=== PATIENT | male | born 1975 | race Caucasian/White ===

== ENCOUNTER 2016-03-27 13:11 | Emergency (ER) | payer BC ==
--- NOTE | 2016-03-27 15:28 | EDDOCDS ---
Nurse's Notes [facility] Name: Josh Vazquez Age: 40 yrs Sex: Male : 1975 Arrival Date: 03/27/2016 Time: 13:11 Bed Triage 2 Private MD: Ricardo Wong Diagnosis: Carpal tunnel syndrome, left upper limb;Anxiety disorder, unspecified Presentation: 03/27 13:16 Presenting complaint: Patient states: several weeks of left finger numbness and dy tingling that has gotten progressively worse. complaining of burn sensation to bilateral shoulder blade area that started today. started Effexor 2 weeks ago and concerned that it could be related. also recently had sister diagnosed with MS which causing him concern. Adult Sepsis Screening: The patient does not have new or worsening altered mentation. Patient's respiratory rate is less than 22. Systolic blood pressure is greater than 100. Patient has a qSOFA score of 0- Negative Sepsis Screen. Suicide/Homicide risk assessment- the patient denies having any suicidal and/or homicidal ideations and does not present with any other emotional, behavioral or mental health complaints. Status: Patient is not a gas line servicer or dependent. Transition of care: patient was not received from another setting of care. 13:16 Acuity: MAK Level 3 dy 13:16 Method Of Arrival: Walkin/Carried/Asstd dy Triage Assessment: 13:19 General: Appears in no apparent distress. Pain: Location: left scapular area and right dy scapular area Pain currently is 4 out of 10 on a pain scale. Quality of pain is described as burning. 15:27 Pt Declines HIV testing. dy Historical: - Allergies: No known drug Allergies; - Home Meds: 1. Effexor XR 75 mg Oral cp24 1 cap nightly (Last dose: 03/26/2016) 2. hydroxyzine HCl 25 mg Oral tab 1 tab 1-2 tabs at night for sleep (Last dose: 03/27/2016) - PMHx: Allergies, Seasonal; Anxiety; - PSHx: none; - Social history: Smoking status: Patient states was never smoker of tobacco. No barriers to communication noted, The patient speaks fluent Upper Sorbian, Speaks appropriately for age. - Family history: Not pertinent. - : The pt / caregiver states he / she is not on anticoagulants. Home medication list is obtained from the patient. - Exposure Risk Screening:: None identified. Screenin:26 Screening information is obtained from the patient. Fall risk: No risks identified. dy Assistance ADL's: requires no assistance with activities of daily living. Abuse/DV Screen: The patient / caregiver reports he/she is: not in a situation that causes fear, pain or injury. Nutritional screening: No deficits noted. Advance Directives: There is no active DNR order. home support is adequate. Assessment: 15:26 General: Appears in no apparent distress, Behavior is appropriate for age, cooperative. dy Pain: Location: right scapular area and left scapular area Pain currently is 3 out of 10 on a pain scale. Quality of pain is described as burning. Vital Signs: 13:12 BP 136 / 80; Pulse 78; Resp 18 S; Temp 97.8(O); Pulse Ox 99% on R/A; Weight 97.52 kg dd6 (R); Height 5 ft. 6 in. (167.64 cm) (R); 15:23 BP 128 / 90; Pulse 79; Resp 18; Pulse Ox 96% on R/A; jb5 13:12 Body Mass Index 34.70 (97.52 kg, 167.64 cm) dd6 Vitals: 13:12 Log In Time: March 27, 2016 at 13:10. dd6 ED Course: 13:12 Patient visited by Charles Schneider PCA. dd6 13:12 Ricardo Wong is Private Physician. dd6 13:12 Patient moved to Waiting dd6 13:13 Patient moved to Pre RCE dd6 13:18 Triage Initiated dy 13:59 Patient visited by Dianne Al PCA. jb5 13:59 Patient moved to Triage 2 srm 14:44 Reagan Lal PA-C is PHCP. ar2 14:44 Eladia Chavarria MD is Attending Physician. ar2 14:44 Patient visited by Reagan Lal PA-C. ar2 15:10 Ricardo Wong is Referral Physician. ar2 15:20 [facility] Payment Agreement was scanned into [employer] and attached to record. gjb 15:24 Patient visited by Dianne Al PCA. jb5 15:26 The patient / caregiver is instructed regarding the plan of care and ED course. Patient dy has correct armband on for positive identification. 15:26 No IV's were initiated during this patient's visit. No procedures done that require dy assistance. Order Results: There are currently no results for this order. Outcome: 15:11 Discharge ordered by Provider. ar2 15:26 Discharge Assessment: patient administered narcotics - no. The following High Risk dy Discharge criteria are identified: None. Discharged to home ambulatory. Condition: good. Discharge instructions given to patient, Instructed on discharge instructions, follow up and referral plans. medication usage, Demonstrated understanding of instructions, medications, Pt was receptive of discharge instructions/ teaching. Prescriptions given X 1. No special radiology studies were completed. Property sent home with patient. 15:27 Patient left the ED. dy Signatures: Domonique Carrizales, RN RN Tal Nolasco RN RN Dianne Lozano, ENGINEERING PROGRAM MANAGER ENGINEERING PROGRAM MANAGER jb5 Reagan Lal PA-C PACharles ar2 Charles Schneider, ENGINEERING PROGRAM MANAGER ENGINEERING PROGRAM MANAGER dd6 Christina Cho Corrections: (The following items were deleted from the chart) 15:24 15:23 BP 128 / 90; Pulse 79bpm; Pulse Ox 96% RA; jb5 jb5 MTDD
--- NOTE | 2016-03-27 15:28 | EDDOCDS ---
Physician Documentation [facility] Name: Josh Vazquez Age: 40 yrs Sex: Male : 1975 Arrival Date: 03/27/2016 Time: 13:11 Bed Triage 2 Private MD: Ricardo Wong Disposition: 03/27/16 15:11 Discharged to Home/Self Care. Impression: Carpal tunnel syndrome, left upper limb, Anxiety disorder, unspecified. - Condition is Stable. - Discharge Instructions: Panic Attacks, Carpal Tunnel Syndrome, [id number]. - Prescriptions for Naprosyn 500 mg Oral Tablet - take 1 tablet by ORAL route 2 times per day take with food; 30 tablet. - Medication Reconciliation, Local Pharmacy Hours form. - Follow up: Ricardo Wong; When: 4 - 5 days; Reason: Further diagnostic work-up, Recheck today's complaints, Continuance of care. Follow up: Emergency Department; When: As needed; Reason: Worsening of conditions. - Problem is new. - Symptoms are unchanged. Historical: - Allergies: No known drug Allergies; - Home Meds: 1. Effexor XR 75 mg Oral cp24 1 cap nightly (Last dose: 03/26/2016) 2. hydroxyzine HCl 25 mg Oral tab 1 tab 1-2 tabs at night for sleep (Last dose: 03/27/2016) - PMHx: Allergies, Seasonal; Anxiety; - PSHx: none; - Social history: Smoking status: Patient states was never smoker of tobacco. No barriers to communication noted, The patient speaks fluent Portuguese, Speaks appropriately for age. - Family history: Not pertinent. - : The pt / caregiver states he / she is not on anticoagulants. Home medication list is obtained from the patient. - Exposure Risk Screening:: None identified. Vital Signs: 03/27 13:12 BP 136 / 80; Pulse 78; Resp 18 S; Temp 97.8(O); Pulse Ox 99% on R/A; Weight 97.52 kg / dd6 214.99 lbs (R); Height 5 ft. 6 in. (167.64 cm) (R); 15:23 BP 128 / 90; Pulse 79; Resp 18; Pulse Ox 96% on R/A; jb5 13:12 Body Mass Index 34.70 (97.52 kg, 167.64 cm) dd6 MDM: 15:18 Financial registration complete. gjb 15:20 [facility] Payment Agreement was scanned into [employer] and attached to record. gjb Signatures: Tal Casillas RN RN Reagan Soto PA-C PA-C ar2 Beck, Gabriela gjb The chart was reviewed and I authenticate all verbal orders and agree with the evaluation and treatment provided.Attachments: 15:20 [facility] Payment Agreement gjb MTDD
--- NOTE | 2016-03-29 16:28 | EDDOCDS ---
Nurse's Notes [facility] Name: Josh Vazquez Age: 40 yrs Sex: Male : 1975 Arrival Date: 03/27/2016 Time: 13:11 Bed Triage 2 Private MD: Ricardo Wong Diagnosis: Carpal tunnel syndrome, left upper limb;Anxiety disorder, unspecified Presentation: 03/27 13:16 Presenting complaint: Patient states: several weeks of left finger numbness and dy tingling that has gotten progressively worse. complaining of burn sensation to bilateral shoulder blade area that started today. started Effexor 2 weeks ago and concerned that it could be related. also recently had sister diagnosed with MS which causing him concern. Adult Sepsis Screening: The patient does not have new or worsening altered mentation. Patient's respiratory rate is less than 22. Systolic blood pressure is greater than 100. Patient has a qSOFA score of 0- Negative Sepsis Screen. Suicide/Homicide risk assessment- the patient denies having any suicidal and/or homicidal ideations and does not present with any other emotional, behavioral or mental health complaints. Status: Patient is not a career services officer or dependent. Transition of care: patient was not received from another setting of care. 13:16 Acuity: MAK Level 3 dy 13:16 Method Of Arrival: Walkin/Carried/Asstd dy Triage Assessment: 13:19 General: Appears in no apparent distress. Pain: Location: left scapular area and right dy scapular area Pain currently is 4 out of 10 on a pain scale. Quality of pain is described as burning. 15:27 Pt Declines HIV testing. dy Historical: - Allergies: No known drug Allergies; - Home Meds: 1. Effexor XR 75 mg Oral cp24 1 cap nightly (Last dose: 03/26/2016) 2. hydroxyzine HCl 25 mg Oral tab 1 tab 1-2 tabs at night for sleep (Last dose: 03/27/2016) - PMHx: Allergies, Seasonal; Anxiety; - PSHx: none; - Social history: Smoking status: Patient states was never smoker of tobacco. No barriers to communication noted, The patient speaks fluent Mohawk, Speaks appropriately for age. - Family history: Not pertinent. - : The pt / caregiver states he / she is not on anticoagulants. Home medication list is obtained from the patient. - Exposure Risk Screening:: None identified. Screenin:26 Screening information is obtained from the patient. Fall risk: No risks identified. dy Assistance ADL's: requires no assistance with activities of daily living. Abuse/DV Screen: The patient / caregiver reports he/she is: not in a situation that causes fear, pain or injury. Nutritional screening: No deficits noted. Advance Directives: There is no active DNR order. home support is adequate. Assessment: 15:26 General: Appears in no apparent distress, Behavior is appropriate for age, cooperative. dy Pain: Location: right scapular area and left scapular area Pain currently is 3 out of 10 on a pain scale. Quality of pain is described as burning. Vital Signs: 13:12 BP 136 / 80; Pulse 78; Resp 18 S; Temp 97.8(O); Pulse Ox 99% on R/A; Weight 97.52 kg dd6 (R); Height 5 ft. 6 in. (167.64 cm) (R); 15:23 BP 128 / 90; Pulse 79; Resp 18; Pulse Ox 96% on R/A; jb5 13:12 Body Mass Index 34.70 (97.52 kg, 167.64 cm) dd6 Vitals: 13:12 Log In Time: March 27, 2016 at 13:10. dd6 ED Course: 13:12 Patient visited by Charles Schneider PCA. dd6 13:12 Ricardo Wong is Private Physician. dd6 13:12 Patient moved to Waiting dd6 13:13 Patient moved to Pre RCE dd6 13:18 Triage Initiated dy 13:59 Patient visited by Dianne Al PCA. jb5 13:59 Patient moved to Triage 2 srm 14:44 Reagan Lal PA-C is PHCP. ar2 14:44 Eladia Chavarria MD is Attending Physician. ar2 14:44 Patient visited by Reagan Lal PA-C. ar2 15:10 Ricardo Wong is Referral Physician. ar2 15:20 [facility] Payment Agreement was scanned into [employer] and attached to record. gjb 15:24 Patient visited by Dianne Al PCA. jb5 15:26 The patient / caregiver is instructed regarding the plan of care and ED course. Patient dy has correct armband on for positive identification. 15:26 No IV's were initiated during this patient's visit. No procedures done that require dy assistance. 03/28 09:05 T-Sheet-- Draft Copy was scanned into [employer] and attached to record. gb Order Results: There are currently no results for this order. Outcome: 03/27 15:11 Discharge ordered by Provider. ar2 15:26 Discharge Assessment: patient administered narcotics - no. The following High Risk dy Discharge criteria are identified: None. Discharged to home ambulatory. Condition: good. Discharge instructions given to patient, Instructed on discharge instructions, follow up and referral plans. medication usage, Demonstrated understanding of instructions, medications, Pt was receptive of discharge instructions/ teaching. Prescriptions given X 1. No special radiology studies were completed. Property sent home with patient. 15:27 Patient left the ED. dy Signatures: Domonique Carrizales, RN RN srm Magy Pink, Reg Reg Tal Abraham RN RN Dianne Lozano, AREA FIELD WORKER AREA FIELD WORKER jb5 Reagan Lal PA-C PACharles ar2 Charles Schneider, AREA FIELD WORKER AREA FIELD WORKER dd6 Christina Cho Corrections: (The following items were deleted from the chart) 15:24 15:23 BP 128 / 90; Pulse 79bpm; Pulse Ox 96% RA; jb5 jb5 Chart Complete MTDD
--- NOTE | 2016-03-29 16:28 | EDDOCDS ---
Physician Documentation [facility] Name: Josh Vazquez Age: 40 yrs Sex: Male : 1975 Arrival Date: 03/27/2016 Time: 13:11 Bed Triage 2 Private MD: Ricardo Wong Disposition: 03/27/16 15:11 Discharged to Home/Self Care. Impression: Carpal tunnel syndrome, left upper limb, Anxiety disorder, unspecified. - Condition is Stable. - Discharge Instructions: Panic Attacks, Carpal Tunnel Syndrome, [id number]. - Prescriptions for Naprosyn 500 mg Oral Tablet - take 1 tablet by ORAL route 2 times per day take with food; 30 tablet. - Medication Reconciliation, Local Pharmacy Hours form. - Follow up: Ricardo Wong; When: 4 - 5 days; Reason: Further diagnostic work-up, Recheck today's complaints, Continuance of care. Follow up: Emergency Department; When: As needed; Reason: Worsening of conditions. - Problem is new. - Symptoms are unchanged. Historical: - Allergies: No known drug Allergies; - Home Meds: 1. Effexor XR 75 mg Oral cp24 1 cap nightly (Last dose: 03/26/2016) 2. hydroxyzine HCl 25 mg Oral tab 1 tab 1-2 tabs at night for sleep (Last dose: 03/27/2016) - PMHx: Allergies, Seasonal; Anxiety; - PSHx: none; - Social history: Smoking status: Patient states was never smoker of tobacco. No barriers to communication noted, The patient speaks fluent Pashto, Speaks appropriately for age. - Family history: Not pertinent. - : The pt / caregiver states he / she is not on anticoagulants. Home medication list is obtained from the patient. - Exposure Risk Screening:: None identified. Vital Signs: 03/27 13:12 BP 136 / 80; Pulse 78; Resp 18 S; Temp 97.8(O); Pulse Ox 99% on R/A; Weight 97.52 kg / dd6 214.99 lbs (R); Height 5 ft. 6 in. (167.64 cm) (R); 15:23 BP 128 / 90; Pulse 79; Resp 18; Pulse Ox 96% on R/A; jb5 13:12 Body Mass Index 34.70 (97.52 kg, 167.64 cm) dd6 MDM: 15:18 Financial registration complete. gjb 15:20 [facility] Payment Agreement was scanned into [employer] and attached to record. gjb 03/28 09:05 T-Sheet-- Draft Copy was scanned into [employer] and attached to record. gb Signatures: Magy Pink, Reg Reg gb Tal Casillas, RN RN Reagan Soto PA-C PA-C ar2 Beck, Gabriela [facility] The chart was reviewed and I authenticate all verbal orders and agree with the evaluation and treatment provided.Attachments: 03/27 15:20 [facility] Payment Agreement gjb 03/28 09:05 T-Sheet-- Draft Copy gb Chart Complete MTDD
--- NOTE | 2016-03-29 16:28 | EDDOCDS ---
Physician Documentation [facility] Name: Josh Vazquez Age: 40 yrs Sex: Male : 1975 Arrival Date: 03/27/2016 Time: 13:11 Bed Triage 2 Private MD: Ricardo Wong Disposition: 03/27/16 15:11 Discharged to Home/Self Care. Impression: Carpal tunnel syndrome, left upper limb, Anxiety disorder, unspecified. - Condition is Stable. - Discharge Instructions: Panic Attacks, Carpal Tunnel Syndrome, Emus-os-Cdnt. - Prescriptions for Naprosyn 500 mg Oral Tablet - take 1 tablet by ORAL route 2 times per day take with food; 30 tablet. - Medication Reconciliation, Local Pharmacy Hours form. - Follow up: Ricardo Wong; When: 4 - 5 days; Reason: Further diagnostic work-up, Recheck today's complaints, Continuance of care. Follow up: Emergency Department; When: As needed; Reason: Worsening of conditions. - Problem is new. - Symptoms are unchanged. Historical: - Allergies: No known drug Allergies; - Home Meds: 1. Effexor XR 75 mg Oral cp24 1 cap nightly (Last dose: 03/26/2016) 2. hydroxyzine HCl 25 mg Oral tab 1 tab 1-2 tabs at night for sleep (Last dose: 03/27/2016) - PMHx: Allergies, Seasonal; Anxiety; - PSHx: none; - Social history: Smoking status: Patient states was never smoker of tobacco. No barriers to communication noted, The patient speaks fluent Amharic, Speaks appropriately for age. - Family history: Not pertinent. - : The pt / caregiver states he / she is not on anticoagulants. Home medication list is obtained from the patient. - Exposure Risk Screening:: None identified. Vital Signs: 03/27 13:12 BP 136 / 80; Pulse 78; Resp 18 S; Temp 97.8(O); Pulse Ox 99% on R/A; Weight 97.52 kg / dd6 214.99 lbs (R); Height 5 ft. 6 in. (167.64 cm) (R); 15:23 BP 128 / 90; Pulse 79; Resp 18; Pulse Ox 96% on R/A; jb5 13:12 Body Mass Index 34.70 (97.52 kg, 167.64 cm) dd6 MDM: 15:18 Financial registration complete. gjb 15:20 [facility] Payment Agreement was scanned into [employer] and attached to record. gjb 03/28 09:05 T-Sheet-- Draft Copy was scanned into [employer] and attached to record. gb Signatures: Magy Pink, Reg Reg gb Tal Casillas, RN RN Reagan Soto PA-C PA-C ar2 Beck, Gabriela [facility] The chart was reviewed and I authenticate all verbal orders and agree with the evaluation and treatment provided.Attachments: 03/27 15:20 [facility] Payment Agreement gjb 03/28 09:05 T-Sheet-- Draft Copy gb Chart Complete MTDD
== END 2016-03-27 15:27 | disposition home or self-care (01) ==
LOC: M ED 13:11
DX: G56.02 Carpal tunnel syndrome, left upper limb (principal); F41.9 Anxiety disorder, unspecified; J30.9 Allergic rhinitis, unspecified; Z79.899 Other long term (current) drug therapy

== ENCOUNTER → 2016-03-30 | Outpatient (REF) | payer BC ==
[2016-03-30 12:52] LABS: VITAMIN B12 LEVEL 643 PG/ML
[2016-03-30 12:53] LABS: FOLATE 14.6 NG/ML
[2016-04-02 00:08] LABS: VITAMIN E LEVEL 12.6 mg/L (5.3-17.5)
== END ==
LOC: M LABNEURO 12:23
PROVIDERS: ATTEND Psychiatry & Neurology Neurology
DX: R20.2 Paresthesia of skin (principal)

== ENCOUNTER → 2017-03-26 | Outpatient (CLI) | payer BC | LOC: M RAD 19:38 | DX: R05 Cough (principal) | CPT/HCPCS: 71046 ==

== ENCOUNTER → 2017-04-13 | Outpatient (CLI) | payer BC | LOC: M WUC 11:08 | DX: J18.9 Pneumonia, unspecified organism (principal) ==

== ENCOUNTER → 2017-04-30 | Outpatient (CLI) | payer BC | LOC: M SLEEP 19:36 | DX: G47.30 Sleep apnea, unspecified (principal); R06.83 Snoring; R40.0 Somnolence | CPT/HCPCS: 95810 ==

== ENCOUNTER → 2017-05-13 | Outpatient (CLI) | payer BC | LOC: M WUC 11:01 | DX: J20.9 Acute bronchitis, unspecified (principal) | CPT/HCPCS: 71046 ==

== ENCOUNTER → 2017-06-10 | Outpatient (CLI) | payer BC | LOC: M SLEEP 20:02 | DX: G47.33 Obstructive sleep apnea (adult) (pediatric) (principal) | CPT/HCPCS: 95811 ==

== ENCOUNTER → 2017-12-15 | Outpatient (REF) | payer OTHER | LOC: M LAB REF 15:29 | DX: R05 Cough (principal) ==

== ENCOUNTER 2017-12-17 13:25 | Day surgery (SDC) | payer OTHER ==
[2017-12-17] MEDS: NS 1,000 ML IV (07:00)
[2017-12-17] MEDS ORDERED: PROPOFOL 200 MG/20 ML VIAL As Ordered (15:15)
[2017-12-17] MEDS ORDERED: LIDOCAINE 2% MDV 20 ML VIAL As Ordered (15:15)
[2017-12-17] MEDS ORDERED: GLYCOPYRROLATE INJ 0.2 MG/ML 2 ML VIAL As Ordered (15:24)
== END 2017-12-17 16:38 | disposition home or self-care (01) ==
LOC: M OPP 13:25
DX: K30 Functional dyspepsia (principal); R12 Heartburn; E78.5 Hyperlipidemia, unspecified; K21.9 Gastro-esophageal reflux disease without esophagitis; R05 Cough; F41.9 Anxiety disorder, unspecified; G47.30 Sleep apnea, unspecified; Z79.899 Other long term (current) drug therapy
CPT/HCPCS: 43235

== ENCOUNTER 2018-01-06 08:18 | Outpatient (CLI) | payer OTHER ==
[2018-01-06] MEDS ORDERED: METHACHOLINE KIT (J7674) INH (10:00)
[2018-01-11] MEDS ORDERED: METHACHOLINE KIT (J7674) INH (09:00)
== END 2018-01-11 ==
LOC: M CARPUL 08:18
DX: R05 Cough (principal)
CPT/HCPCS: J7674

== ENCOUNTER → 2018-02-07 | Outpatient (CLI) | payer OTHER ==
[~2018-02-07] MED LIST: ISOVUE-370 76% 100ML VIAL (Q9967) As Ordered
== END ==
LOC: M RAD 10:17
DX: R05 Cough (principal); R06.02 Shortness of breath
CPT/HCPCS: Q9967

== ENCOUNTER → 2021-02-05 | Outpatient (CLI) | payer OTHER ==
[~2021-02-05] MED LIST changes: +ATOR1TAB21 PO; +DYMI137S; -ISOVUE-370 76% 100ML VIAL (Q9967) As Ordered; +LEXA1TAB PO; +MULT1TAB10 PO; +OMEP1CAP73 PO; +ZYRT10CA5 PO
== END ==
LOC: M LABSMTC 09:18
PROVIDERS: ATTEND Pediatrics
DX: Z20.822 Contact with and (suspected) exposure to COVID-19 (principal)
CPT/HCPCS: C9803; U0003

== ENCOUNTER → 2021-03-26 | Outpatient (REF) | LOC: M LABSMTC 10:14 | PROVIDERS: ATTEND Pediatrics | DX: Z11.52 Encounter for screening for COVID-19 (principal) ==

== ENCOUNTER → 2021-08-04 | Outpatient (CLI) | payer OTHER | LOC: M RAD 10:55 | PROVIDERS: ATTEND Nurse Practitioner Adult Health | DX: R91.8 Other nonspecific abnormal finding of lung field (principal) ==

== ENCOUNTER → 2022-03-17 | Outpatient (CLI) | payer OTHER ==
[2022-03-17 13:30] LABS: IMMUNOGLOBULIN A 307.2 MG/DL (40-350); THYROID STIMULATING HORMONE 1.775 uIU/ML (0.55-4.78)
[2022-03-17 13:31] LABS: FREE T4 1.15 NG/DL (0.89-1.76)
== END ==
LOC: M WUC 08:59
PROVIDERS: ATTEND Internal Medicine Gastroenterology
DX: R19.4 Change in bowel habit (principal)

== ENCOUNTER → 2022-03-17 | Outpatient (CLI) | payer OTHER ==
[2022-03-17 13:16] LABS: HEMOGLOBIN A1c 5.2 % (4.0-6.0)
[2022-03-17 13:26] LABS: ALBUMIN 3.9 G/DL (3.2-5.2); ALKALINE PHOSPHATASE 80 U/L (46-116); ALT/SGPT 34 U/L (7.0-40); AST/SGOT 30 U/L (<34); BILIRUBIN,TOTAL 0.7 MG/DL (0.3-1.2); BLOOD UREA NITROGEN 14 MG/DL (9-23); CARBON DIOXIDE LEVEL 30 MMOL/L (20-31); CHLORIDE LEVEL 101 MMOL/L (98-107); CHOLESTEROL LEVEL 210 MG/DL (<200); CHOLESTEROL RISK RATIO 3.92 (<5); CREATININE FOR GFR 0.96 MG/DL (0.70-1.30); GLOMERULAR FILTRATION RATE > 60.0 (>60); GLUCOSE, FASTING 107 MG/DL (60-100); HDL CHOLESTEROL 53.5 MG/DL (>40); LDL CHOLESTEROL 98.3 MG/DL (<100); NON-HDL-C 157 MG/DL; SODIUM LEVEL 139 MMOL/L (136-145); TOTAL PROTEIN 7.1 G/DL (5.7-8.2); TRIGLYCERIDES LEVEL 291 MG/DL (<150)
== END ==
LOC: M WUC 09:01
PROVIDERS: ATTEND Internal Medicine
DX: E78.5 Hyperlipidemia, unspecified (principal); R73.01 Impaired fasting glucose

== ENCOUNTER → 2022-05-11 | Outpatient (CLI) | payer OTHER ==
[~2022-05-11] MED LIST changes: +CETI-24 PO; +VITMTA PO; +allergy shot
== END ==
LOC: M LABSMTC 11:32
PROVIDERS: ATTEND Anesthesiology
DX: Z01.812 Encounter for preprocedural laboratory examination (principal)

== ENCOUNTER 2022-05-15 10:50 | Day surgery (SDC) | payer OTHER ==
[~2022-05-15] VITALS: Ht 167.6 cm; Wt 110.1 kg
[~2022-05-15 10:50] MED LIST changes: +LIDOCAINE 2% 100MG/5ML SDV (FOR ANES.) As Ordered ONE; +NS 1,000 ML IV ONE; +fentaNYL 100 MCG/2 ML INJECTION As Ordered ONE; +propofoL 200 MG/20 ML VIAL As Ordered ONE
[2022-05-15] MEDS ORDERED: PRED10PA2 PO (11:41)
[2022-05-15] MEDS ORDERED: propofoL 200 MG/20 ML VIAL As Ordered ONE (13:03)
[2022-05-15] MEDS ORDERED: LIDOCAINE 2% 100MG/5ML SDV (FOR ANES.) As Ordered ONE (13:03)
[2022-05-15 13:45] VITALS: BP 108/69
== END 2022-05-15 13:48 | disposition home or self-care (01) ==
LOC: M OPP 10:50
PROVIDERS: ATTEND Internal Medicine Gastroenterology
DX: Z12.11 Encounter for screening for malignant neoplasm of colon (principal); K64.8 Other hemorrhoids; K29.50 Unspecified chronic gastritis without bleeding; K22.70 Barrett's esophagus without dysplasia; E66.01 Morbid (severe) obesity due to excess calories; K22.89 Other specified disease of esophagus; E78.5 Hyperlipidemia, unspecified; K21.9 Gastro-esophageal reflux disease without esophagitis; J47.9 Bronchiectasis, uncomplicated; F41.9 Anxiety disorder, unspecified; G47.30 Sleep apnea, unspecified; Z91.09 Other allergy status, other than to drugs and biological substances; Z79.899 Other long term (current) drug therapy; Z83.79 Family history of other diseases of the digestive system; Z83.49 Family history of other endocrine, nutritional and metabolic diseases; Z83.3 Family history of diabetes mellitus; Z82.49 Family history of ischemic heart disease and other diseases of the circulatory system; Z80.41 Family history of malignant neoplasm of ovary
CPT/HCPCS: 43239; 45378; 88305; J3010

== ENCOUNTER → 2022-08-28 | Outpatient (CLI) | payer OTHER ==
[~2022-08-28] MED LIST changes: -LIDOCAINE 2% 100MG/5ML SDV (FOR ANES.) As Ordered ONE; -NS 1,000 ML IV ONE; +PRED10PA2 PO; -fentaNYL 100 MCG/2 ML INJECTION As Ordered ONE; -propofoL 200 MG/20 ML VIAL As Ordered ONE
== END ==
LOC: M PLAIMG 13:16
PROVIDERS: ATTEND Nurse Practitioner Adult Health
DX: R91.8 Other nonspecific abnormal finding of lung field (principal)

== ENCOUNTER → 2022-09-23 | Outpatient (CLI) | payer OTHER ==
[2022-09-23 12:56] LABS: HEMOGLOBIN A1c 5.4 % (4.0-6.0)
[2022-09-23 13:00] LABS: ALBUMIN 3.9 G/DL (3.2-5.2); ALKALINE PHOSPHATASE 77 U/L (46-116); ALT/SGPT 42 U/L (7.0-40); AST/SGOT 15 U/L (<34); BILIRUBIN,TOTAL 0.8 MG/DL (0.3-1.2); BLOOD UREA NITROGEN 16 MG/DL (9-23); CALCIUM LEVEL 9.2 MG/DL (8.5-10.1); CARBON DIOXIDE LEVEL 30 MMOL/L (20-31); CHLORIDE LEVEL 103 MMOL/L (98-107); CHOLESTEROL LEVEL 217 MG/DL (<200); CHOLESTEROL RISK RATIO 4.01 (<5); CREATININE FOR GFR 0.87 MG/DL (0.70-1.30); GLOMERULAR FILTRATION RATE > 60.0 (>60); GLUCOSE, FASTING 105 MG/DL (60-100); LDL CHOLESTEROL 124.8 MG/DL (<100); POTASSIUM SERUM 4.5 MMOL/L (3.5-5.1); SODIUM LEVEL 139 MMOL/L (136-145); TOTAL PROTEIN 6.9 G/DL (5.7-8.2); TRIGLYCERIDES LEVEL 191 MG/DL (<150)
== END ==
LOC: M WUC 10:06
PROVIDERS: ATTEND Internal Medicine
DX: E78.5 Hyperlipidemia, unspecified (principal); R73.01 Impaired fasting glucose

== ENCOUNTER → 2023-08-05 | Outpatient (CLI) | payer OTHER | LOC: M WUC 10:20 | PROVIDERS: ATTEND Nurse Practitioner Family | DX: R05.9 Cough, unspecified (principal); R07.82 Intercostal pain ==

== ENCOUNTER → 2023-09-27 | Outpatient (CLI) | payer OTHER ==
[2023-09-27 18:43] LABS: ALKALINE PHOSPHATASE 78 U/L (46-116); ALT/SGPT 43 U/L (7.0-40); AST/SGOT 26 U/L (<34); BILIRUBIN,TOTAL 0.8 MG/DL (0.3-1.2); BLOOD UREA NITROGEN 16 MG/DL (9-23); CALCIUM LEVEL 9.5 MG/DL (8.5-10.1); CARBON DIOXIDE LEVEL 29 MMOL/L (20-31); CHLORIDE LEVEL 106 MMOL/L (98-107); CHOLESTEROL LEVEL 190 MG/DL (<200); CHOLESTEROL RISK RATIO 3.46 (<5); CREATININE FOR GFR 0.88 MG/DL (0.70-1.30); GLOMERULAR FILTRATION RATE > 60.0 (>60); HDL CHOLESTEROL 54.9 MG/DL (>40); LDL CHOLESTEROL 112.3 MG/DL (<100); NON-HDL-C 135.1 MG/DL; POTASSIUM SERUM 4.3 MMOL/L (3.5-5.1); SODIUM LEVEL 138 MMOL/L (136-145); TOTAL PROTEIN 6.9 G/DL (5.7-8.2); TRIGLYCERIDES LEVEL 114 MG/DL (<150)
[2023-09-28 06:53] LABS: GLUCOSE, FASTING 93 MG/DL (60-100)
== END ==
LOC: M WUC 11:29
PROVIDERS: ATTEND Internal Medicine
DX: E78.5 Hyperlipidemia, unspecified (principal); R73.01 Impaired fasting glucose

== ENCOUNTER → 2024-03-28 | Outpatient (CLI) | payer OTHER ==
[2024-03-28 11:08] LABS: ALBUMIN 4.1 G/DL (3.2-5.2); ALKALINE PHOSPHATASE 78 U/L (40-129); ALT/SGPT 56 U/L (7.0-40); AST/SGOT 37 U/L (<34); BILIRUBIN,TOTAL 0.8 MG/DL (0.3-1.2); BLOOD UREA NITROGEN 13 MG/DL (9-23); CALCIUM LEVEL 9.4 MG/DL (8.5-10.1); CARBON DIOXIDE LEVEL 31 MMOL/L (20-31); CHLORIDE LEVEL 103 MMOL/L (98-107); CHOLESTEROL LEVEL 191 MG/DL (<200); CHOLESTEROL RISK RATIO 3.47 (<5); CREATININE FOR GFR 1.01 MG/DL (0.70-1.30); GLOMERULAR FILTRATION RATE > 60.0 (>60); LDL CHOLESTEROL 111.8 MG/DL (<100); POTASSIUM SERUM 4.6 MMOL/L (3.5-5.1); SODIUM LEVEL 141 MMOL/L (136-145); TOTAL PROTEIN 7.1 G/DL (5.7-8.2); TRIGLYCERIDES LEVEL 121 MG/DL (<150)
[2024-03-29 07:06] LABS: GLUCOSE, FASTING 95 MG/DL (60-100)
== END ==
LOC: M WUC 09:13
PROVIDERS: ATTEND Internal Medicine
DX: E78.5 Hyperlipidemia, unspecified (principal); R74.01 Elevation of levels of liver transaminase levels

== ENCOUNTER → 2024-04-03 | Outpatient (CLI) | payer OTHER | LOC: M WUC 15:13 | PROVIDERS: ATTEND Internal Medicine | DX: R10.9 Unspecified abdominal pain (principal) ==

== ENCOUNTER → 2024-10-02 | Outpatient (CLI) | payer OTHER ==
[2024-10-02 12:44] LABS: ALT/SGPT 40 U/L (7.0-40); AST/SGOT 32 U/L (<34); CALCIUM LEVEL 9.1 MG/DL (8.5-10.1); CARBON DIOXIDE LEVEL 29 MMOL/L (20-31); CHLORIDE LEVEL 103 MMOL/L (98-107); CHOLESTEROL LEVEL 184 MG/DL (<200); CHOLESTEROL RISK RATIO 3.00 (<5); CREATININE FOR GFR 1.01 MG/DL (0.70-1.30); GLOMERULAR FILTRATION RATE > 90.0 (>60); LDL CHOLESTEROL 97.8 MG/DL (<100); NON-HDL-C 122.8 MG/DL; POTASSIUM SERUM 4.2 MMOL/L (3.5-5.1); SODIUM LEVEL 144 MMOL/L (136-145); TRIGLYCERIDES LEVEL 125 MG/DL (<150)
== END ==
LOC: M WUC 09:04
PROVIDERS: ATTEND Internal Medicine
DX: E78.5 Hyperlipidemia, unspecified (principal); R74.01 Elevation of levels of liver transaminase levels